=== PATIENT | male | born 1960 | race Caucasian/White ===

== ENCOUNTER 2023-08-26 07:15 | Day surgery (SDC) | payer OTHER ==
[2023-08-26] MEDS ORDERED: propofoL 50 ML ONE (09:29)
[2023-08-26] MEDS ORDERED: Lactated Ringers 1,000 ML IV SCH ×2 (09:30→10:00)
== END 2023-08-26 10:30 | disposition home or self-care (01) ==
LOC: MW.SDS 07:15
PROVIDERS: ATTEND Surgery
DX: Z12.11 Encounter for screening for malignant neoplasm of colon (principal); K63.5 Polyp of colon; F41.9 Anxiety disorder, unspecified; E78.5 Hyperlipidemia, unspecified; I10 Essential (primary) hypertension; Z79.899 Other long term (current) drug therapy; Z98.890 Other specified postprocedural states
CPT/HCPCS: 45378; J2704; J7120